=== PATIENT | female | born 1985 | race African-American/Black ===

== ENCOUNTER 2017-09-09 12:00 | Emergency (ER) | payer SELFPAY ==
[2017-09-09 12:04] VITALS: BP 143/91; PULSE 98; TEMP 98.3; BMI 25.2
[2017-09-09] MEDS ORDERED: TETANUS AND DIPHTHERIA TOXOID 0.5 ML DISP.SYRIN IM ONE (13:08)
--- NOTE | 2017-09-09 13:09 | PDOC ---
History of Present Illness - General Chief Complaint: Injury Stated Complaint: INJURY History Source: Patient Exam Limitations: No Limitations - History of Present Illness Initial Comments: 09/09/17 13:46 32-year-old female had gone to the urgent care this morning after having a glass break in her right hand between digits 1 and 2 on the palmar side where there is a small puncture noted with some erythema and some swelling. This occurred last evening. This morning when she went to the urgent care to explain how painful it was and having the difficulty of being able to grasp or flexion of digits 1 and 2 due to pain and swelling they suggested she come to the emergency room for evaluation of tendon damage. 09/09/17 14:18 Past History - Past Medical History Allergies/Adverse Reactions: Allergies Allergy/AdvReac Type Severity Reaction Status Date / Time No Known Allergies Allergy Verified 09/09/17 12:05 Home Medications: Ambulatory Orders No Home Medications 0 dose .ROUTE UTDICT 01/15/14 Other medical history: PATIENT DENIES MEDICAL HX - Suicide/Smoking/Psychosocial Hx Smoking History: Never smoked Hx Alcohol Use: Yes (OCCASIONALLY) Drug/Substance Use Hx: No Review of Systems - Review of Systems Comments:: 09/09/17 13:47 General statement: Hematology: neg history of bleeding/blood thinners Skin: Neg for lesions, rash, bruising. HEENT: Neg symptoms Respiratory: Neg SOB or difficulty in breathing Cardiac: Neg chest pain GI: Neg pain, n/v : Neg problems on voiding MS: Neg for joint pain/stiffness, no edema positive pain to the right hand palmar side where small punctures noted Neuro: Neg for LOC, weakness, Endocrine: Neg for excess thirst/hunger, cold/heat intolerance, excess sweating Allergies: Neg for allergies 09/09/17 14:20 *Physical Exam - Vital Signs Last Vital Signs Temp Pulse Resp BP Pulse Ox 98.3 F 98 H 16 143/91 97 09/09/17 12:01 09/09/17 12:01 09/09/17 12:01 09/09/17 12:01 09/09/17 12:01 - Physical Exam Comments: 09/09/17 13:47 General Appearance: This well appearing 32-year-old female V/S: hemodynamically stable, afebrile Skin: WNL of pt's skin color, no signs of pallor, mottling, cyanosis Head:symmetrical Eyes: EOM's intact, PERRLA Ears: denies pain Nose: patent Throat: lips, teeth, gums, tongue, buccal mucos pink and moist Lungs: Chest symmetry equal. Cap refill <3 seconds. Lung sounds clear Cardiac: PMI at R 4MCL space, pos S1 and S2, regular rate. Abdomen: Soft, round, nontender : Not observed Muscularskeletal: Gait steady, ambulated in to ER, no edema +PMS with difficulty in making a fist with the right hand due to the pain and swelling where there is noted to be a small puncture site on palmar side Neuro: AAOx3, cognitively intact, speech clear and appropriate. 09/09/17 14:20 Medical Decision Making - Medical Decision Making 09/09/17 13:48 Patient was initially seen and examined. Patient with small puncture site and pain Plan Urine hCG X-ray Referral for a hand surgeon 09/09/17 14:17 Negative for fracture or foreign body in hand x-ray. 09/09/17 14:20 *DC/Admit/Observation/Transfer Diagnosis at time of Disposition: Hand injury Qualifiers: Encounter type: initial encounter Laterality: right Qualified Code(s): S69.91XA - Unspecified injury of right wrist, hand and finger(s), initial encounter; S69.91XA - Unspecified injury of right wrist, hand and finger(s), initial encounter - Discharge Dispostion Disposition: HOME Condition at time of disposition: Good Admit: No - Referrals Referrals: Edwin Montes MD [Primary Care Provider] - - Patient Instructions Additional Instructions: Discharge instructions 1. Please follow up with your primary physician within the next few days and explain that you have been seen here in the Emergency Room. You may also follow-up in one of the major Medical Center's such as [facility] or [facility] at their clinics for a hand specialist for evaluating your left hand. The side which Medical Center you would like to go to and call them today to seek an appointment further clinics 2. If you experience any worsening of symptoms, please return to the ER 3. Rest, ice, keep the wound covered, avoid any heavy lifting or bending, take Tylenol for pain 4. Drink plenty of water - Post Discharge Activity Forms/Work/School Notes: Back to Work
[2017-09-09 14:19] LABS: PH,URINE 7.5 (4.5-8); URINE APPEARANCE CLEAR; URINE BILIRUBIN NEGATIVE (NEGATIVE); URINE BLOOD 3+ (NEGATIVE); URINE COLOR YELLOW; URINE GLUCOSE (UA) NEGATIVE (NEGATIVE); URINE KETONE NEGATIVE (NEGATIVE); URINE PROTEIN NEGATIVE (NEGATIVE); URINE UROBILINOGEN 0.2 (0.2-1.0)
[2017-09-09 14:20] LABS: URINE LEUK ESTERASE 1+ (NEGATIVE); URINE NITRITE NEGATIVE (NEGATIVE)
[2017-09-09 18:06] LABS: URINE BACTERIA FEW /hpf (NEGATIVE)
== END 2017-09-09 14:33 | disposition home or self-care (01) ==
LOC: JERFT 12:00
DX: S61.431D Puncture wound without foreign body of right hand, subsequent encounter (principal); W25.XXXD Contact with sharp glass, subsequent encounter
CPT/HCPCS: 73130-TC-RT; 81003; 81015; 84703; 99281-25

== ENCOUNTER 2020-01-24 14:39 | Emergency (ER) | payer OTHER ==
[2020-01-24 14:51] VITALS: BMI 25.6
[2020-01-24] MEDS ORDERED: SODIUM CHLORIDE 0.9% 500 ML INFUS.BAG IV ONE (15:16)
--- NOTE | 2020-01-24 15:26 | PDOC ---
History of Present Illness - General Chief Complaint: Lightheaded Stated Complaint: DIZZINESS Time Seen by Provider: 01/24/20 15:09 History Source: Patient Exam Limitations: No Limitations - History of Present Illness Initial Comments: 01/24/20 15:20 Patient is a 34-year-old female who presents to the ED with complaint of dizziness since this morning. The patient states she admits to dieting and not eating very much secondary to having a dress fitting for her wedding. She states yesterday she did not eat anything and she did have some cocktails. She only ate an egg sandwich today. She does admit to drinking some fluids today but not very much. She states that since this morning she has been having room spinning dizziness. It is primarily when changing positions. She denies any nausea or vomiting. She denies any chest pain or shortness of breath. The patient denies taking any diet pills but was hesitant to answer when initially asked. She denies any illicit drugs. She does admit to drinking alcohol socially. She denies any past medical history or allergies to medication. Past History - Past Medical History Allergies/Adverse Reactions: Allergies Allergy/AdvReac Type Severity Reaction Status Date / Time No Known Allergies Allergy Verified 01/24/20 14:48 Home Medications: Ambulatory Orders No Home Medications 0 dose .ROUTE UTDICT 01/15/14 COPD: No - Psycho Social/Smoking Cessation Hx Smoking History: Never smoked Hx Alcohol Use: Yes (OCCASIONALLY) Drug/Substance Use Hx: No Review of Systems - Review of Systems Comments:: 01/24/20 15:22 - Review of Systems Able to Perform ROS?: Yes Constitutional: No: Fever, Chills, Loss of Appetite, Night Sweats, Weakness HEENTM: No: Eye Pain, Vision changes, Ear Pain, Throat Pain, Throat Swelling, Mouth Pain, Difficulty Swallowing Respiratory: No: Cough, Shortness of Breath, Wheezing, Sputum Production Cardiac (ROS): No: Chest Pain, Chest Tightness, Palpitations, Irregular Heart Beat, Edema ABD/GI: No: Nausea, Vomiting, Abdominal Pain, Diarrhea : No Dysuria, No Hematuria, No Frequency, No Urgency Musculoskeletal: No: Muscle Pain, Back Pain, Joint Pain, Muscle Weakness, Neck Pain Integumentary: No: Lesions, Rash Neurological: No: Headache, Numbness, Tingling, Weakness, Speech Difficulties; Positive: dizziness *Physical Exam - Vital Signs Last Vital Signs Temp Pulse Resp BP Pulse Ox 97.9 F 89 18 148/83 99 01/24/20 14:44 01/24/20 14:44 01/24/20 14:44 01/24/20 14:44 01/24/20 14:44 - Physical Exam 01/24/20 15:23 - Physical Exam General Appearance: Nourished, Appropriately Dressed, No Distress HEENT: EOMI, Normal Voice, No Pharyngeal Erythema, No Muffled/Hoarse voice, No Tonsillar Exudate, No Tonsillar Erythema, No Nasal Congestion, No Rhinorrhea, Hearing Grossly Normal, TMs Normal, No TM Bulging, No TM Dullness, No TM Erythema, no nystagmus appreciated with [place]-Hallpike maneuver. [place]-Hallpike maneuver exacerbated the patient's dizziness primarily with turning the head to the right. Neck: Supple, No Lymphadenopathy (R), No Lymphadenopathy (L), No Rigidity, No Decreased range of motion Respiratory/Chest: Lungs Clear, Normal Breath Sounds. No Respiratory Distress, No Accessory Muscle Use Cardiovascular: Regular Rhythm, Regular Rate, S1, S2 Gastrointestinal/Abdominal: Normal Bowel Sounds, Soft. Non-tender, No Guarding , No Rebound, No Rigidity Musculoskeletal: Normal Inspection. No Decreased Range of Motion Extremity: Normal Capillary Refill, Normal Inspection Integumentary: Normal Color, Dry. No Rash Neurologic: steel heater II-XII NML intact, Fully Oriented, Alert, Normal Mood/Affect, Normal Response. Rapid change in positioning increase the patient's dizziness primarily when going from sitting to lying flat and sitting to standing. Heart Score/ECG Review - ECG Impressions Comment:: 01/24/20 15:34 NSR @ 94 bpm Borderline prolonged QT @ 462 Nonspecific T wave abnormality ED Treatment Course - LABORATORY CBC & Chemistry Diagram: 01/24/20 15:00 01/24/20 15:00 Medical Decision Making - Medical Decision Making 01/24/20 15:24 Assessment: Patient is a 34-year-old female with dizziness since this morning. Plan: -Saline lock and IV fluids ordered -CBC, CMP, serum ordered -EKG ordered -If hCG negative will order Reglan -Will reassess 01/24/20 16:07 Pt resting comfortably in the ED. NS fluids currrently being infused. Reglan ordered. CMP pending. The patient has been endorsed to [facility] Rosen for further evaluation and treatment. The patient is stable at the time of endorsement. 01/24/20 16:08 Discharge - Discharge Information Problems reviewed: Yes Clinical Impression/Diagnosis: Dizziness Condition: Stable - Follow up/Referral Referrals: Chadd Brown MD [Primary Care Provider] - - Patient Discharge Instructions - Post Discharge Activity
[2020-01-24 15:35] LABS: BASO % 0.8 % (0-2.0); EOS % 1.2 % (0-4.5); HEMATOCRIT 42.4 % (32.4-45.2); HEMOGLOBIN 14.6 GM/dL (10.7-15.3); LYMPH % 26.8 % (8-40); MCH 31.1 pg (25.7-33.7); MCHC 34.4 g/dl (32.0-36.0); MEAN CELL VOLUME 90.2 fl (80-96); MEAN PLT VOLUME 8.2 fl (7.5-11.1); MONO % 6.8 % (3.8-10.2); NEUT % 64.4 % (42.8-82.8); PLATELET COUNT 339 K/MM3 (134-434); WHITE BLOOD COUNT 5.8 K/mm3 (4.0-10.0)
[2020-01-24] MEDS ORDERED: METOCLOPRAMIDE HCL INJECTION 10 MG/2 ML VIAL IVPB ONE (16:05)
[2020-01-24] MEDS ORDERED: METOCLOPRAMIDE HCL INJECTION 10 MG/2 ML VIAL ONE (16:11)
--- NOTE | 2020-01-24 16:22 | PDOC ---
*Physical Exam - Vital Signs Last Vital Signs Temp Pulse Resp BP Pulse Ox 97.9 F 89 18 148/83 99 01/24/20 14:44 01/24/20 14:44 01/24/20 14:44 01/24/20 14:44 01/24/20 14:44 ED Treatment Course - LABORATORY CBC & Chemistry Diagram: 01/24/20 15:00 01/24/20 15:00 - ADDITIONAL ORDERS Additional order review: Laboratory Results 01/24/20 15:00 Serum , Qual Negative 01/24/20 15:00 RBC 4.70 MCV 90.2 MCHC 34.4 RDW 14.0 MPV 8.2 Neutrophils % 64.4 Lymphocytes % 26.8 Monocytes % 6.8 Eosinophils % 1.2 Basophils % 0.8 - Medications Given in the ED: ED Medications Discontinued Medications Generic Name Dose Route Start Last Admin Trade Name Joshq PRN Reason Stop Dose Admin Metoclopramide HCl 10 mg 01/24/20 16:05 01/24/20 16:11 Reglan Injection - IVPB 01/24/20 16:06 10 mg ONCE ONE Administration Sodium Chloride 1,000 ml 01/24/20 15:16 01/24/20 15:42 Normal Saline - IV 01/24/20 15:17 1,000 ml ONCE ONE Administration Medical Decision Making - Medical Decision Making 01/24/20 16:21 Patient endorsed to me for reassessment pending hydration. 01/24/20 17:00 Patient seen and evaluated, dizziness is resolved. Patient given a p.o. challenge and tolerating I discussed the physical exam findings, ancillary test results and final diagnoses with the patient. I answered all of the patient's questions. The patient was satisfied with the care received and felt comfortable with the discharge plan and treatment plan. The Patient agrees to follow up with the primary care physician within 24-72 hours. Discharge - Discharge Information Problems reviewed: Yes Clinical Impression/Diagnosis: Dizziness Condition: Stable Disposition: HOME - Follow up/Referral Referrals: Chadd Brown MD [Primary Care Provider] - - Patient Discharge Instructions Patient Printed Discharge Instructions: DI for Benign Paroxysmal Positional Vertigo Additional Instructions: Your Discharge Instructions: You must call primary care physician within 24 hours to arrange follow-up. Return to the Emergency Department with any new, persistent or worsening symptoms, for fever, chills, SOB, dizziness or any other concerning changes that may occur. - Post Discharge Activity
[2020-01-24 16:25] LABS: BLOOD UREA NITROGEN 10.2 mg/dL (7-18); CREATININE 0.8 mg/dL (0.55-1.3); POTASSIUM 4.3 mmol/L (3.5-5.1)
[2020-01-24 16:26] LABS: ALBUMIN 4.3 g/dl (3.4-5.0); TOT PROT 8.3 g/dl (6.4-8.2)
[2020-01-24 17:48] VITALS: BP 145/86; PULSE 90; TEMP 98.2
--- NOTE | 2020-01-25 09:26 | EKG ---
Test Reason : Blood Pressure : / mmHG Vent. Rate : 094 BPM Atrial Rate : 094 BPM P-R Int : 132 ms QRS Dur : 076 ms QT Int : 370 ms P-R-T Axes : 064 016 024 degrees QTc Int : 462 ms NORMAL SINUS RHYTHM POSSIBLE LEFT ATRIAL ENLARGEMENT NONSPECIFIC T WAVE ABNORMALITY PROLONGED QT ABNORMAL ECG NO PREVIOUS ECGS AVAILABLE Confirmed by José Miguel Blanco ([id number]) on 01/25/2020 9:25:47 AM Referred By: Confirmed By:José Miguel Blanco
== END 2020-01-24 17:50 | disposition home or self-care (01) ==
LOC: JER 14:39
PROC: 3E033GC Introduction of Other Therapeutic Substance into Peripheral Vein, Percutaneous Approach (ICD-10-PCS; principal; 2020-01-24)
DX: H81.10 Benign paroxysmal vertigo, unspecified ear (principal)
CPT/HCPCS: 36415; 80053; 84703; 85025; 93005; 93010; 96374; 99284-25

== ENCOUNTER 2022-06-11 09:24 | Emergency (ER) | payer OTHER ==
[2022-06-11 09:31] VITALS: BP 134/74; PULSE 69; TEMP 98.5; BMI 24.7
== END 2022-06-11 10:35 | disposition left against medical advice (07) ==
LOC: JER 09:24
DX: O03.9 Complete or unspecified spontaneous abortion without complication (principal)
CPT/HCPCS: 99281-25

== ENCOUNTER 2023-01-11 19:40 | Inpatient (IN) | payer OTHER ==
[2023-01-11 20:35] VITALS: BMI 31.2
[2023-01-11] MEDS ORDERED: SODIUM CHLORIDE 500 ML IV STA (20:35)
[2023-01-11 21:35] LABS: BASO % 0.5 % (0-2.0); EOS % 0.7 % (0-4.5); HEMATOCRIT 30.4 % (32.4-45.2); LYMPH % 16.1 % (8-40); MCH 31.6 pg (25.7-33.7); MCHC 36.1 g/dl (32.0-36.0); MEAN CELL VOLUME 87.3 fl (80-96); MEAN PLT VOLUME 8.7 fl (7.5-11.1); MONO % 8.5 % (3.8-10.2); NEUT % 74.2 % (42.8-82.8); PLATELET COUNT 179 10^3/uL (134-434); RBC 3.48 M/mm3 (3.60-5.2); RDW 14.7 % (11.6-15.6); WHITE BLOOD COUNT 9.4 K/mm3 (4.0-10.0)
[2023-01-11 21:42] LABS: INR 0.93 (0.83-1.09); PROTHROMBIN TIME (PATIENT) 10.8 SEC (9.7-13.0)
[2023-01-11 21:45] LABS: ACTIVATED PTT 23.1 SECONDS (25.2-36.5)
[2023-01-11] MEDS: DEXTROSE 5%-LACTATED RINGERS 1,000 ML IV SCH (21:45)
[2023-01-11] MEDS ORDERED: OXYTOCIN 30 UNITS in 0.9% NS 30 UNIT/500 ML INFUS.BAG IVPB SCH (21:45)
[2023-01-11 21:56] LABS: BLOOD UREA NITROGEN 5.9 mg/dL (7-18); CALCIUM 8.3 mg/dL (8.5-10.1)
[2023-01-11 21:59] LABS: CREATININE 0.5 mg/dL (0.55-1.3)
[2023-01-11] MEDS ORDERED: OXYTOCIN 30 UNITS in 0.9% NS 30 UNIT/500 ML INFUS.BAG IVPB ONE (22:28)
[2023-01-11] MEDS: MISOPROSTOL 100 MCG TABLET PV SCH (23:58)
[2023-01-12] MEDS: MISOPROSTOL 100 MCG TABLET PV SCH (04:50)
[2023-01-12] MEDS ORDERED: SODIUM CHLORIDE 500 ML IV STA ×2 (05:02→10:04)
[2023-01-12] MEDS: DEXTROSE 5%-LACTATED RINGERS 1,000 ML IV SCH ×2 (06:00→11:07)
[2023-01-12] MEDS: OXYTOCIN 30 UNITS in 0.9% NS 30 UNIT/500 ML INFUS.BAG IVPB SCH (11:28)
[2023-01-12] MEDS ORDERED: morphine SULFATE 4 MG/ML VIAL IVPB ONE ×2 (12:24→16:54)
[2023-01-12] MEDS ORDERED: morphine SULFATE 4 MG/ML VIAL ONE ×2 (12:29→16:27)
[2023-01-12] MEDS ORDERED: morphine CARPU-JECT 8 MG/1 ML DISP.SYRIN IVPB ONE (16:54)
[2023-01-12] MEDS ORDERED: FENTANYL CITRATE/PF 50 MCG/ML VIAL ONE (17:38)
[2023-01-12] MEDS ORDERED: FENTANYL/BUPIVACAINE/NS/PF - PCEA - 50 ML DISP.SYRIN EP ONE ×2 (17:39→17:49)
[2023-01-12] MEDS: FENTANYL/BUPIVACAINE/NS/PF - PCEA - 50 ML DISP.SYRIN EP SCH (18:02)
[2023-01-12] MEDS ORDERED: NALOXONE HCL 0.4 MG/ML VIAL IVPUSH PRN (18:15)
[2023-01-12] MEDS ORDERED: OXYTOCIN 20 UNITS in 0.9% NS 20 UNIT/1,000 ML INFUS.BAG IV ONE (20:06)
[2023-01-12] MEDS ORDERED: LABETALOL HCL 20 MG/4 ML VIAL ONE (20:29)
[2023-01-12] MEDS ORDERED: LABETALOL HCL 5 MG/1 ML (100MG/20 ML VIAL) IVPUSH ONE (20:30)
[2023-01-12] MEDS ORDERED: LIDOCAINE HCL 1% PRESERVATIVE FREE - 30ML VIAL ONE (21:34)
[2023-01-12 22:21] LABS: CORD BASE EXCESS -9.2 mmol/L (0-2); CORD HCO3 18.9 mmHg (20-29); CORD PCO2 48.6 mmHg (30-78); CORD pH 7.207 (7.14-7.44)
[2023-01-12] MEDS ORDERED: BENZOCAINE 28 GM HEMORRHOIDAL OINTMENT TP PRN (22:55)
[2023-01-12] MEDS ORDERED: ACETAMINOPHEN 325 MG TABLET (FP) PO PRN (22:55)
[2023-01-12] MEDS ORDERED: OXYTOCIN 20 UNITS in 0.9% NS 20 UNIT/1,000 ML INFUS.BAG IV SCH (23:00)
[2023-01-12] MEDS ORDERED: IBUPROFEN 600 MG TABLET (FP) PO ONE (23:32)
[2023-01-12] MEDS: IBUPROFEN 600 MG TABLET (FP) PO PRN (23:35)
[2023-01-13] MEDS: IBUPROFEN 600 MG TABLET (FP) PO PRN ×3 (06:29→18:28)
[2023-01-13 08:09] LABS: BASO % 0.1 % (0-2.0); EOS % 0.2 % (0-4.5); HEMATOCRIT 25.9 % (32.4-45.2); LYMPH % 8.5 % (8-40); MCH 30.6 pg (25.7-33.7); MCHC 34.9 g/dl (32.0-36.0); MEAN CELL VOLUME 87.5 fl (80-96); MEAN PLT VOLUME 8.5 fl (7.5-11.1); MONO % 8.8 % (3.8-10.2); NEUT % 82.4 % (42.8-82.8); PLATELET COUNT 161 10^3/uL (134-434); RBC 2.96 M/mm3 (3.60-5.2); WHITE BLOOD COUNT 13.3 K/mm3 (4.0-10.0)
[2023-01-13] MEDS: FERROUS SO4 325 MG TABLET (FP) PO SCH ×3 (08:50→18:28)
[2023-01-13] MEDS: PRENATAL VITAMINS W/ FOLIC ACID TABLET (FP) PO SCH (09:29)
[2023-01-13 09:35] VITALS: RESP 18
[2023-01-13] MEDS: BENZOCAINE 20% 57 GM BOTTLE TP PRN (18:29)
[2023-01-13] MEDS: MISOPROSTOL 100 MCG TABLET PV SCH (20:20)
[2023-01-13] MEDS: OXYTOCIN 30 UNITS in 0.9% NS 30 UNIT/500 ML INFUS.BAG IVPB SCH (20:21)
[2023-01-13] MEDS: FENTANYL/BUPIVACAINE/NS/PF - PCEA - 50 ML DISP.SYRIN EP SCH (20:21)
[2023-01-13] MEDS: DEXTROSE 5%-LACTATED RINGERS 1,000 ML IV SCH (20:22)
[2023-01-13] MEDS ORDERED: SENNOSIDES/DOCUSATE COMBO (SENNA PLUS) TABLET (UD) PO PRN (22:00)
[2023-01-14] MEDS: IBUPROFEN 600 MG TABLET (FP) PO PRN ×3 (02:42→15:56)
[2023-01-14] MEDS: FERROUS SO4 325 MG TABLET (FP) PO SCH ×3 (08:35→17:53)
[2023-01-14] MEDS: PRENATAL VITAMINS W/ FOLIC ACID TABLET (FP) PO SCH (09:25)
[2023-01-14 09:28] VITALS: BP 126/77; PULSE 96; TEMP 98.1
[2023-01-14] MEDS: BENZOCAINE 20% 57 GM BOTTLE TP PRN (17:58)
[2023-01-15 14:17] LABS: POC NITRAZINE NEG
== END 2023-01-14 18:15 | disposition home or self-care (01) | DRG 560 ==
LOC: JLDR 19:40 → J3W 01-12 23:50
PROVIDERS: ADMIT Obstetrics & Gynecology Maternal & Fetal Medicine; ATTEND Obstetrics & Gynecology Maternal & Fetal Medicine
PROC: 10E0XZZ Delivery of Products of Conception, External Approach (ICD-10-PCS; principal; 2023-01-12)
PROC: 0HQ9XZZ Repair Perineum Skin, External Approach (ICD-10-PCS; 2023-01-12)
PROC: 3E0P7VZ Introduction of Hormone into Female Reproductive, Via Natural or Artificial Opening (ICD-10-PCS; 2023-01-12)
PROC: 3E033VJ Introduction of Other Hormone into Peripheral Vein, Percutaneous Approach (ICD-10-PCS; 2023-01-12)
DX: O13.4 Gestational [pregnancy-induced] hypertension without significant proteinuria, complicating childbirth (principal); O70.0 First degree perineal laceration during delivery; O69.81X0 Labor and delivery complicated by cord around neck, without compression, not applicable or unspecified; O46.91 Antepartum hemorrhage, unspecified, first trimester; Z3A.38 38 weeks gestation of pregnancy; Z37.0 Single live birth
CPT/HCPCS: 36415; 36600; 59409; 80048; 82803; 83986-QW; 85025; 85610; 85730; 86780; 86850; 86900; 86901; 88307-TC; C9803-CS; U0003; U0005